=== PATIENT | male | born 1995 | race Caucasian/White ===

== ENCOUNTER 2017-02-08 12:01 | Emergency (ER) | payer OTHER ==
[~2017-02-08] VITALS: Ht 167.6 cm; Wt 62.0 kg
[~2017-02-08 12:01] MED LIST: NO MEDS
[2017-02-08 12:03] VITALS: Ht 167.6 cm; Wt 62.0 kg
[2017-02-08] MEDS ORDERED: EFIN4SOL TP (13:29)
--- NOTE | 2017-02-08 13:39 | ERA ---
ER Documentation Chief Complaint Date/Time DATE: 02/08/17 TIME: 13:39 Chief Complaint RIGHT INDEX NAIL pain HPI The patient is a 24-year-old male, presenting to the ER because of chronic left index finger fungal infection. He accidentally jammed the left index finger today that because the left index finger nail pain. He has been using over-the- counter fungal medication with minimal response. He denies any other symptoms, smokes and drinks socially Past medical/surgical history: None ROS All systems reviewed and are negative except as per history of present illness. Medications Home Meds Active Scripts Efinaconazole (Jublia) 4 Ml Saima.w.appl, 4 ML TP DAILY for 30 Days Prov:KASSI HANNON MD 02/08/17 Reported Medications [No Meds] No Conflict Check 11/26/10 Allergies Allergies: Coded Allergies: No Known Drug Allergies (Verified Allergy, Mild, 11/26/10) PMhx/Soc History of Surgery: No Anesthesia Reaction: No Hx Neurological Disorder: No Hx Respiratory Disorders: No Hx Cardiac Disorders: No Hx Psychiatric Problems: No Hx Miscellaneous Medical Probl: No Hx Alcohol Use: No Hx Substance Use: No Hx Tobacco Use: No Physical Exam Vitals Vital Signs Date Time Temp Pulse Resp B/P Pulse Ox O2 Delivery O2 Flow Rate FiO2 02/08/17 12:03 97.8 62 18 116/73 100 Physical Exam Const: No acute distress. Head: Atraumatic. Eyes: Normal Conjunctiva. ENT: Normal External Ears, Nose and Mouth. Neck: Full range of motion. No meningismus. Resp: Clear to auscultation bilaterally. Cardio: Regular rate and rhythm. Abd: Soft, non distended, normal bowel sounds, non tender. Skin: No petechiae or rashes. Back: No midline or flank tenderness. Ext: No cyanosis, or edema. Left index finger with onychomycosis, no hematoma, no laceration Neur: Awake and alert. No focal deficit Psych: Normal Mood and Affect. Procedures/MDM MEDICAL MAKING DECISION: The patient is a 21-year-old male, presenting with left index onychomycosis. He is stable for outpatient follow-up The differential diagnoses considered include but are not limited to fracture, contusion, sprain, paronychia Departure Diagnosis: Primary Impression: Onychomycosis Condition: Good Patient Instructions: Onychomycosis Additional Instructions: Call your primary care doctor TOMORROW for an appointment during the next 2-3 days.See the doctor sooner or return here if your condition worsens before your appointment time. He was discharged with Efinaconazole KASSI HANNON MD Feb 08, 2017 13:39
== END 2017-02-08 13:37 | disposition home or self-care (01) ==
LOC: FTE 12:01
DX: B35.1 Tinea unguium (principal)
CPT/HCPCS: 99283